=== PATIENT | female | born 2000 | race Caucasian/White ===

== ENCOUNTER 2020-05-30 11:06 | Outpatient (CLI) | payer OTHER, SELFPAY ==
--- NOTE | ~2020-05-30 | US_ITS ---
EXAMINATION: US OB transvaginal DATE: 05/30/2020 11:44 INDICATION: History of spontaneous . TECHNIQUE: Real-time transabdominal and transvaginal obstetric ultrasound. FINDINGS: No prior studies for comparison. The uterus measures 9.8 x 5.8 x 7.5 cm. There is an intrauterine gestational sac, with pole mathew ntified. The crown rump length measures 1.64 cm, which correlates with a estimated gestational age o f 8 weeks 0 days. heart tones are identified measuring 165 bpm. There is a subchorionic hemor rhage measuring 2.6 x 1.8 x 1.3 cm. The ovaries are within normal limits. No free fluid in the pelvis . IMPRESSION: 1. SL IUP with an EGA of 8 weeks, 0 days (EDC by current ultrasound of 01/09/2021). 2: Subchorionic hemorrhage measuring 2.6 x 1.8 x 1.3 cm. Reviewed, dictated and finalized at location A. [employer]BLER IMPRESSION: 1. SL IUP with an EGA of 8 weeks, 0 days (EDC by current ultrasound of ). 2: Subchorionic hemorrhage measuring 2.6 x 1.8 x 1.3 cm.
== END 2020-05-30 11:07 ==
PROVIDERS: Visit Provider Obstetrics & Gynecology
DX: O13.1 Gestational [pregnancy-induced] hypertension without significant proteinuria, first trimester (principal); Z3A.01 Less than 8 weeks gestation of pregnancy
CPT/HCPCS: 76817

== ENCOUNTER 2020-06-12 15:16 | Outpatient (CLI) | payer OTHER, SELFPAY ==
--- NOTE | ~2020-06-12 | US_ITS ---
EXAMINATION: US OB limited EXAM DATE: 06/12/2020 15:32 INDICATION: Subchorionic hematoma 1st trimester . TECHNIQUE: Pelvic obstetrical transabdominal sonogram was performed by a technologist. There are mu ltiple grayscale and Doppler images available for interpretation. Comparison is made to prior examina tion from 05/30/2020. FINDINGS: Uterus measures 11.1 x 6.8 x 8.4 cm. There is intrauterine gestation sac. pole with heart rate confirmed at 171 beats per minute. Yolk sac is identified. There are 2 small regions of anechoic subchorionic fluid, larger measuring 2.1 x 2.0 x 2.2 cm (similar size to previously seen region but with decrease in echogenicity), and another tiny anechoic focus measuring 4 x 8 x 7 mm. Th e ovaries not specifically identified. IMPRESSION: Live intrauterine gestation with 2 regions of subchorionic hemorrhage. Reviewed, dictated and finalized at location G. LAR ALARM SUPERINTENDENT IMPRESSION: Live intrauterine gestation with 2 regions of subchorionic hemorrh age.
== END 2020-06-12 15:17 ==
PROVIDERS: Visit Provider Obstetrics & Gynecology
DX: O36.8910 Maternal care for other specified fetal problems, first trimester, not applicable or unspecified (principal); Z3A.00 Weeks of gestation of pregnancy not specified
CPT/HCPCS: 76815

== ENCOUNTER 2020-06-27 08:39 | Outpatient (CLI) | payer OTHER, SELFPAY ==
--- NOTE | ~2020-06-27 | US_ITS ---
EXAMINATION: US OB <= 14 weeks fetus EXAM DATE: 06/27/2020 09:20 INDICATION: Subchorionic hematoma . 1st trimester. TECHNIQUE: Pelvic obstetrical transabdominal sonogram was performed by a technologist. There are mu ltiple grayscale and Doppler images available for interpretation. Comparison is made to prior examina tion from 06/12/2020. FINDINGS: Uterus measures 10.0 x 6.3 x 10.8 cm. There is intrauterine gestation sac. pole wit h heart rate confirmed at 154 beats per minute. The 5.7 cm crown-rump length corresponds to estimate d gestational age by ultrasound of 12 weeks 2 days. Yolk sac is identified. There is a thin subcho rionic hemorrhage on the right measuring 2 mm in thickness by 1.8 cm diameter, and another more infer iorly measuring 3 mm in thickness by 9 mm in diameter. These have both decreased in volume compared to prior study. The ovaries were not specifically visualized. IMPRESSION: Live intrauterine gestation with improvement in 2 small subchorionic hematomas. Reviewed, dictated and finalized at location A. AVER JEWELRY IMPRESSION: Live intrauterine gestation with improvement in 2 small subchorion ic hematomas.
== END 2020-06-27 08:40 ==
PROVIDERS: Visit Provider Obstetrics & Gynecology
DX: O36.8910 Maternal care for other specified fetal problems, first trimester, not applicable or unspecified (principal); Z3A.00 Weeks of gestation of pregnancy not specified
CPT/HCPCS: 76801

== ENCOUNTER → 2020-07-26 14:08 | Outpatient (CLI) | payer OTHER, SELFPAY ==
--- NOTE | ~2020-07-26 | US_ITS ---
EXAMINATION: US OB limited DATE: 07/26/2020 14:48 INDICATION: Follow-up subchorionic hematoma TECHNIQUE: Real-time transabdominal obstetric ultrasound. FINDINGS: Comparison to 06/27/2020 There is a single living intrauterine in breech presentation. heart rate is 143 BPM. Placenta is anterior measuring 5.7 cm to the cervix. No evidence for subchorionic hemorrhage on the c urrent study. Amniotic fluid is subjectively normal. IMPRESSION: 1. Single living intrauterine in breech presentation with heart rate of 143 bpm. 2: No evidence for subchorionic hemorrhage. Reviewed, dictated and finalized at location B.
== END ==
PROVIDERS: Visit Provider Obstetrics & Gynecology
DX: O36.8920 Maternal care for other specified fetal problems, second trimester, not applicable or unspecified (principal); Z3A.14 14 weeks gestation of pregnancy
CPT/HCPCS: 76815